=== PATIENT | male | born 1955 | race Caucasian/White ===

== ENCOUNTER 2018-10-06 07:00 | Day surgery (SDC) | payer BC ==
[~2018-10-06] VITALS: Ht 188.1 cm; Wt 97.6 kg
[2018-10-06 07:16] VITALS: BP 136/86; PULSE 60; TEMP 97.6
[2018-10-06 08:45] VITALS: BP 110/83; PULSE 62; TEMP 97.6
--- NOTE | 2018-10-06 08:45 | NUR ---
Pt to [facility] via cart from ENDO. Pt drowsy, but awake. Pt denies pain or nausea. Pt ambulates to recliner with stand by assistance x2. in room. Warm blanket provided. Muffin and juice given per pt request. Call light within reach. Will continue to monitor. Call light within reach.
[2018-10-06 09:00] VITALS: BP 117/83; PULSE 60
--- NOTE | 2018-10-06 09:00 | NUR ---
Pt continues to rest. Tolerating food and fluids without difficulties. More juice provided per pt request. Will continue to monitor.
[2018-10-06 09:15] VITALS: BP 127/90; PULSE 56
--- NOTE | 2018-10-06 09:15 | NUR ---
Pt continues to rest. IV site discontinued with all parts intact.
--- NOTE | 2018-10-06 09:30 | NUR ---
Discharge instructions reviewed. Pt voices understanding. Pt up to dress. Call light within reach.
--- NOTE | 2018-10-06 09:45 | NUR ---
Pt escorted to private car via wheel chair. Pt accompanied home by his .
== END 2018-10-06 09:45 | disposition home or self-care (01) ==
LOC: SDCO 07:00
DX: Z12.11 Encounter for screening for malignant neoplasm of colon (principal); Z80.0 Family history of malignant neoplasm of digestive organs
CPT/HCPCS: J2250; J3010; J7030